=== PATIENT | male | born 1960 | race Caucasian/White ===

== ENCOUNTER 2021-11-26 19:34 | Emergency (ER) | payer BC ==
[2021-11-26] MEDS ORDERED: Bacitracin Oint 1 GM U/D Packet TOP ONE (20:17)
[2021-11-26] MEDS ORDERED: Lidocaine 1% 5 ML VIAL INJECT ONE (20:17)
== END 2021-11-26 21:10 | disposition home or self-care (01) ==
LOC: JP.ED 19:34
DX: S51.012A Laceration without foreign body of left elbow, initial encounter (principal); Z88.0 Allergy status to penicillin; Z88.2 Allergy status to sulfonamides; W26.9XXA Contact with unspecified sharp object(s), initial encounter
CPT/HCPCS: 12002; 99283